=== PATIENT | male | born 1980 ===

== ENCOUNTER 2018-11-12 13:42 | Emergency (ER) | payer OTHER ==
[2018-11-12 14:12] VITALS: BP 138/91
--- NOTE | 2018-11-12 15:04 | UC ---
Respiratory Complaint HPI - HPI Summary HPI Summary: Pt presents with c/o persistent cough and wheezing that began 6 weeks ago. Pt is from [place] and has been using his rescue inhaler daily with little to no improvement. Pt states he is unable tofind the same medication here. He reports that his symptoms began 6 weeks ago after having URI. He ahs hx of asthma and only uses INH as needed. - History of Current Complaint Chief Complaint: UCRespiratory Stated Complaint: COUGH Time Seen by Provider: 11/12/18 14:50 Hx Obtained From: Patient Onset/Duration: Gradual Onset, Lasting Weeks, Still Present Timing: Constant Severity Initially: Mild Severity Currently: Moderate Pain Intensity: 0 Character: Cough: Productive Aggravating Factors: Deep Breaths, Recumbent Position Alleviating Factors: Nothing Associated Signs And Symptoms: Positive: Wheezing, URI, Nasal Congestion - Risk Factors Pulmonary Embolism Risk Factors: Negative Cardiac Risk Factors: Negative Pseudomonas Risk Factors: Chronic Lung Disease Tuberculosis Risk Factors: Negative - Allergies/Home Medications Allergies/Adverse Reactions: Allergies Allergy/AdvReac Type Severity Reaction Status Date / Time No Known Allergies Allergy Verified 11/12/18 14:13 PMH/Surg Hx/FS Hx/Imm Hx Previously Healthy: Yes Respiratory History: Asthma - Surgical History Surgical History: None - Family History Known Family History: Positive: Cardiac Disease, Other - NONCONTRIBUTORY - Social History Occupation: Employed Full-time Alcohol Use: Weekly Alcohol Amount: 2 beers at home Substance Use Type: None Substance Use Comment - Amount & Last Used: every other weekend Smoking Status (MU): Current Some Day Smoker Type: Cigarettes Household Exposure Type: Cigarettes - Immunization History Hx Tetanus, Diphtheria Vaccination: No Vaccination Up to Date: No Review of Systems All Other Systems Reviewed And Are Negative: Yes Constitutional: Positive: Negative Skin: Positive: Negative Eyes: Positive: Negative ENT: Positive: Sinus Congestion Respiratory: Positive: Cough, Other - wheezing Cardiovascular: Positive: Negative Gastrointestinal: Positive: Negative Genitourinary: Positive: Negative Motor: Positive: Negative Neurovascular: Positive: Negative Musculoskeletal: Positive: Negative Neurological: Positive: Negative Psychological: Positive: Negative Is Patient Immunocompromised?: No Physical Exam Triage Information Reviewed: Yes Appearance: Well-Appearing Vital Signs: Initial Vital Signs Temp 98.9 F 11/12/18 14:07 Pulse 79 11/12/18 14:07 Resp 18 11/12/18 14:07 BP 138/91 11/12/18 14:07 Pulse Ox 97 11/12/18 14:07 Vital Signs Reviewed: Yes Eye Exam: Normal ENT Exam: Normal Dental Exam: Normal Neck exam: Normal Respiratory: Positive: Wheezing Cardiovascular Exam: Normal Musculoskeletal Exam: Normal Neurological Exam: Normal Psychological Exam: Normal Skin Exam: Normal Respiratory Course/Dx - Differential Dx/Diagnosis Differential Diagnosis/HQI/PQRI: Asthma, Bronchitis, Lower Resp Infection Provider Diagnosis: Reactive airway disease with wheezing, Multiple allergies Discharge - Sign-Out/Discharge Documenting (check all that apply): Patient Departure All imaging exams completed and their final reports reviewed: No Studies - Discharge Plan Condition: Stable Disposition: HOME Prescriptions: Benzonatate CAP* [Tessalon 100 MG CAP*] 200 mg PO Q8H PRN #30 cap PRN Reason: Cough Fexofenadine/Pseudoephedrine [Emilia-D 24 Hour Tablet] 1 each PO DAILY #20 tab.er.24h predniSONE TAB* [Deltasone 10 MG TAB*] 30 mg PO DAILY #12 tab Patient Education Materials: Diphenhydramine (By mouth), Reactive Airways Disease (ED), Allergies (ED) Referrals: [facility] [Outside] Kevin Mcnally MD [Medical Doctor] - If Needed Lucina Walls MD [Medical Doctor] - Amaris Islas MD [Medical Doctor] - If Needed No Primary Care Phys,NOPCP [Primary Care Provider] - Additional Instructions: Please establish care with a PCP as soon as possible. - Billing Disposition and Condition Condition: STABLE Disposition: Home
== END 2018-11-12 15:36 | disposition home or self-care (01) ==
LOC: UCEAST 13:42
DX: J45.901 Unspecified asthma with (acute) exacerbation (principal); T78.40XA Allergy, unspecified, initial encounter; F17.210 Nicotine dependence, cigarettes, uncomplicated; X58.XXXA Exposure to other specified factors, initial encounter
CPT/HCPCS: 99202; G0463